=== PATIENT | female | born 2000 | race African-American/Black ===

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

== ENCOUNTER 2021-02-23 21:36 | Emergency (ER) | payer SELFPAY ==
[~2021-02-23] VITALS: Ht 165.1 cm; Wt 44.5 kg
[2021-02-23] MEDS ORDERED: HYDROCODONE/APAP 5MG-325MG TAB PO ONE (22:00)
[2021-02-23] MEDS ORDERED: ONDANSETRON HCL 4 MG ORAL DISINTEGRATING TAB PO ONE (22:00)
[2021-02-23] MEDS ORDERED: KETOROLAC TROMETHAMINE 30 MG/ML VIAL IM ONE (22:00)
[2021-02-23] MEDS ORDERED: ACETAMINOPHEN500 MG PO (22:09)
[2021-02-23] MEDS ORDERED: IBUPROFEN IB200 MG PO (22:09)
[2021-02-23] MEDS ORDERED: KETOROLAC TROMETHAMINE 30 MG/ML VIAL ONE (22:15)
[2021-02-23] MEDS ORDERED: ONDANSETRON HCL 4 MG ORAL DISINTEGRATING TAB ONE (22:15)
[2021-02-23] MEDS ORDERED: HYDROCODONE/APAP 5MG-325MG TAB ONE (22:16)
[2021-02-23 23:09] VITALS: BP 122/82
== END 2021-02-23 23:09 | disposition home or self-care (01) ==
LOC: FSED 21:44
DX: S00.83XA Contusion of other part of head, initial encounter (principal); R51.9 Headache, unspecified; Y00.XXXA Assault by blunt object, initial encounter
CPT/HCPCS: 70450; 99283; J1885; Q0162